=== PATIENT | female | born 1975 | race Caucasian/White ===

== ENCOUNTER 2020-11-23 14:15 | Outpatient (CLI) | payer OTHER, SELFPAY ==
--- NOTE | 2020-11-23 14:22 | MM_ITS ---
WS: [id number] BILATERAL DIGITAL SCREENING MAMMOGRAPHY WITH CAD CLINICAL INFORMATION: SCREENING HISTORY: Screening mammogram. No current complaints. COMPARISON: and March 30, 2019 TECHNIQUE: Bilateral CC and MLO views. FINDINGS: History of bilateral breast reduction Scattered fibroglandular densities bilaterally. No suspicious focal mass, asymmetry, calcifications, or architectural distortion. No evidence of malignancy. Tiny punctate calcification. MM/[place] [id number] IMPRESSION: BI-RADS: 2-Benign FOLLOW UP: 1 Year Follow-up Recommend return to annual screening mammography.
== END 2020-11-23 14:16 | disposition home or self-care (01) ==
LOC: RADSHAW 14:21
PROVIDERS: PCP Family Medicine; Visit Provider Family Medicine
DX: Z12.31 Encounter for screening mammogram for malignant neoplasm of breast (principal)
CPT/HCPCS: 77067

== ENCOUNTER → 2021-01-01 14:12 | Outpatient (BNVA) | payer OTHER, SELFPAY | PROVIDERS: PCP Family Medicine; Visit Provider Obstetrics & Gynecology | DX: R68.82 Decreased libido (principal) | CPT/HCPCS: 84403 ==

== ENCOUNTER → 2021-04-27 10:11 | Outpatient (BNVA) | payer OTHER, SELFPAY | PROVIDERS: PCP Family Medicine; Visit Provider Obstetrics & Gynecology | DX: R68.82 Decreased libido (principal) | CPT/HCPCS: 84403 ==

== ENCOUNTER 2021-07-03 09:16 | Outpatient (CLI) | payer OTHER, SELFPAY ==
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
== END 2021-07-03 09:17 | disposition home or self-care (01) ==
LOC: RAD 09:17
PROVIDERS: PCP Family Medicine; Visit Provider Family Medicine
DX: M19.011 Primary osteoarthritis, right shoulder (principal); M25.511 Pain in right shoulder
CPT/HCPCS: 73030

== ENCOUNTER → 2021-11-16 10:07 | Outpatient (BNVA) | payer OTHER, SELFPAY | PROVIDERS: PCP Family Medicine; Visit Provider Surgery | DX: K22.70 Barrett's esophagus without dysplasia (principal); K21.9 Gastro-esophageal reflux disease without esophagitis | CPT/HCPCS: 99203 ==

== ENCOUNTER 2021-11-29 11:03 | Outpatient (CLI) | payer OTHER, SELFPAY ==
--- NOTE | 2021-11-29 11:07 | MM_ITS ---
WS: [id number] BILATERAL SCREENING DIGITAL TOMOSYNTHESIS MAMMOGRAM WITH CAD HISTORY: SCREENING, weight loss and bilateral mammoplasty. COMPARISON: 11/23/2020 and 03/30/2019 Bilateral CC and MLO views with tomosynthesis and synthetic mammography submitted. Computer aided det ection analyzed. Breast composition: There are scattered areas of fibroglandular density. No suspicious masses, microc alcifications or architectural distortion. Postsurgical changes from the prior mammoplasty and volume loss within each breast. MM/[place] [id number] IMPRESSION: BI-RADS: 2-Benign FOLLOW UP: 1 Year Follow-up
== END 2021-11-29 11:04 | disposition home or self-care (01) ==
PROVIDERS: PCP Family Medicine; Visit Provider Family Medicine
DX: Z12.31 Encounter for screening mammogram for malignant neoplasm of breast (principal)
CPT/HCPCS: 77063; 77067

== ENCOUNTER 2021-12-05 10:10 | Day surgery (SDC) | payer OTHER, SELFPAY ==
[2021-12-04 12:46] VITALS: BMI 18.4
[2021-12-05 11:00] VITALS: BP 114/66; PULSE 59; RESP 18; TEMP 36.4; O2SAT 100
--- NOTE | 2021-12-05 11:35 | W.PM.OPSUD ---
Surgery/Procedure H&P Update DATE OF PROCEDURE: December 05, 2021 DATE H&P PERFORMED: 11/16/21 PLANNED PROCEDURE: Operation Date: 12/05/21 11:45 Proposed Procedures p EGD 94493,K21.9(Not Applicable) - Michele Calles DO
--- NOTE | 2021-12-05 11:40 | ANES.PREANE2 ---
Pre-Anesthetic Assessment Height/Weight: Height 1.85 m Weight 63.503 kg Temp Pulse Resp BP Pulse Ox O2 Del Method 97.6 F 59 L 18 114/66 100 12/05/21 11:00 12/05/21 11:00 12/05/21 11:00 12/05/21 11:00 12/05/21 11:00 12/05/21 11:00 Preop Diagnosis: Abd pain Operation Date: 12/05/21 11:45 Proposed Procedures p EGD 98339,K21.9(Not Applicable) - Michele Calles DO Familial anesthetic complications: none Was Beta Nilo taken within 24 hours: N/A Was Clonidine taken within 24 hours: N/A Last Intake: 23:00 Social No alcohol and No tobacco Exam alert, oriented x 3, clear to auscultation bilaterally and regular rate & rhythm Airway Submandibular: within normal limits Cervical ROM: within normal limits Mallampati: Class II Dentition: full Pulmonary None reported CV/HEM None reported None reported Hepatic None reported GI Gastroesophageal Reflux Disease Metabolic Thyroid Disease [facility] [place] None reported Neuropsych Anxiety and Depression Anesthetic Plan ASA status: 2 Anesthesia: MAC Medications/Allergies Home Medications Medication Instructions Recorded Confirmed Last Taken Type levothyroxine 88 mcg capsule 88 mcg PO DAILY 10/11/21 12/05/21 12/04/21 History fluoxetine 20 mg capsule 20 mg PO DAILY #30 caps 11/12/21 12/05/21 12/04/21 Rx esterified 1 tab PO ONCE 11/16/21 12/05/21 12/04/21 History estrogens-methyltestosterone 0.625 mg-1.25 mg tablet iron plus 1 patch topical QPM 11/16/21 12/05/21 12/04/21 History pantoprazole 40 mg tablet,delayed 40 mg PO BID 6 weeks #84 tabs 11/16/21 12/05/21 12/04/21 Rx release (Protonix) pediatric multivitamin (Gummi Bear 1 tab PO DAILY 11/16/21 12/05/21 12/04/21 History Multivitamin chewable tablet) Allergies Allergy/AdvReac Type Severity Reaction Status Date / Time No Known Allergies Allergy Verified 12/05/21 11:03 [facility] Anesthesia Medical History Anxiety 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 Surgical History H/O gastric bypass History of cholecystectomy History of esophagogastroduodenoscopy (EGD) 2019 History of partial knee replacement Hx of breast reduction, elective Hx of hysterectomy S/P ACL reconstruction Family History Father Hypertension Emphysema of lung Cancer prostate and lung cancer High cholesterol Mother Neurological disease High cholesterol Grandmother Breast cancer Paternal and maternal Denies family history of Diabetes CAD (coronary artery disease) Clotting disorder Chronic kidney disease (CKD) Bleeding disorder Thyroid disease Stroke Social History Smoking and tobacco status: former smoker Data Anesthesia Cardiac Studies: No Data to Display
[2021-12-05] MEDS: sodium chloride 0.9% 1,000 ML 30 ML IV (11:43)
[2021-12-05] MEDS: midazolam 1 mg/mL INJ 2 mL 2 MG IVP (11:51)
[2021-12-05 12:13] VITALS: BP 87/55; PULSE 57; RESP 16; TEMP 36.1; O2SAT 98
[2021-12-05 12:33] VITALS: BP 101/62; PULSE 54; RESP 16; O2SAT 100
--- NOTE | 2021-12-05 13:36 | ANE.PACU2 ---
Inpatient post-anesthesia follow up: Airway intact: Yes Vital signs: Temperature 97 F Pulse Rate 54 Respiratory Rate 16 Blood Pressure 101/62 Pulse Oximetry 100 Oxygen Delivery Me thod Room Air Oxygen Flow Rate Fraction of Inspir ed Oxygen Hydration adequate: Yes Nausea and vomiting: No Pain level: 1 Mental status: Baseline
== END 2021-12-05 12:40 | disposition home or self-care (01) ==
PROVIDERS: PCP Family Medicine; Visit Provider Surgery
PROC: 0DJ08ZZ Inspection of Upper Intestinal Tract, Via Natural or Artificial Opening Endoscopic (ICD-10-PCS; CPT 43235; principal; 2021-12-05 11:45)
DX: K21.9 Gastro-esophageal reflux disease without esophagitis (principal); K29.50 Unspecified chronic gastritis without bleeding; B96.81 Helicobacter pylori [H. pylori] as the cause of diseases classified elsewhere; F41.9 Anxiety disorder, unspecified; E03.9 Hypothyroidism, unspecified; Z87.891 Personal history of nicotine dependence
CPT/HCPCS: 43239; 88305; 88342; J2250; J2704; J7030

== ENCOUNTER 2021-12-21 07:59 | Outpatient (CLI) | payer OTHER, SELFPAY ==
--- NOTE | 2021-12-21 08:15 | MR_ITS ---
WS: [id number] MRI RIGHT SHOULDER HISTORY: Right shoulder pain COMPARISON: Radiographs 07/03/2021 TECHNIQUE: Multiplanar sequences of the shoulder joint are submitted. Mild narrowing of the AC joint. Small amount of inflammatory changes surrounding the AC joint. Mild s oft tissue and bone hypertrophy. No significant osteophyte encroachment upon the myotendinous inserti on of the supraspinatus. There is a small amount of fluid in the subacromial and subdeltoid bursa. Mi ld subacromial impingement by an osteophyte. No os acromion. I suspect tendon remains in normal posit ion. Very tiny, 5 mm insertion site tear of the supraspinatus. No retraction of the tendon. There is also additional moderate tendinopathy in the distal supraspinatus tendon. No additional tendon tear or ten dinopathy. No muscle atrophy or edema. Edema and subchondral cystic changes in the humeral head. No definite fracture is identified although there is very slight flattening of the posterior lateral humeral head. This may all be chronic and d egenerative. The glenoid is normal. Very mild narrowing of the glenohumeral joint. No labral tear. MR/MR shoulder RT wo con* [id number] IMPRESSION: 1. Very tiny insertion site tear supraspinatus tendon with moderate tendinopat hy. 2. Edema and subchondral cystic changes in the posterior lateral humeral head. Some of this edema could be related to the recent trauma. No fracture is ident ified. 3. Mild AC joint arthritis. 4. Minimal subacromial impingement by osteophytes upon the supraspinatus.
== END 2021-12-21 08:00 | disposition home or self-care (01) ==
PROVIDERS: PCP Family Medicine; Visit Provider Family Medicine
DX: M75.101 Unspecified rotator cuff tear or rupture of right shoulder, not specified as traumatic (principal); R60.0 Localized edema; M13.811 Other specified arthritis, right shoulder
CPT/HCPCS: 73221

== ENCOUNTER → 2021-12-25 10:45 | Outpatient (BNVA) | payer OTHER, SELFPAY | PROVIDERS: PCP Family Medicine; Visit Provider Surgery | DX: K29.70 Gastritis, unspecified, without bleeding (principal); B96.81 Helicobacter pylori [H. pylori] as the cause of diseases classified elsewhere | CPT/HCPCS: 99213 ==

== ENCOUNTER → 2021-12-28 09:24 | Outpatient (BNVA) | payer OTHER, SELFPAY | PROVIDERS: PCP Family Medicine; Visit Provider Orthopaedic Surgery | DX: M62.521 Muscle wasting and atrophy, not elsewhere classified, right upper arm (principal); M75.111 Incomplete rotator cuff tear or rupture of right shoulder, not specified as traumatic | CPT/HCPCS: 99204 ==

== ENCOUNTER → 2022-01-28 13:11 | Outpatient (BNVA) | payer OTHER, SELFPAY | PROVIDERS: PCP Family Medicine; Referring Provider Orthopaedic Surgery; Visit Provider Specialist | DX: M79.601 Pain in right arm (principal); R20.2 Paresthesia of skin | CPT/HCPCS: 95908; 95909 ==

== ENCOUNTER → 2022-04-03 13:06 | Outpatient (BNVA) | payer OTHER, SELFPAY | PROVIDERS: PCP Family Medicine; Visit Provider Orthopaedic Surgery | DX: M75.01 Adhesive capsulitis of right shoulder (principal) | CPT/HCPCS: 99213 ==

== ENCOUNTER 2022-04-12 10:32 | Outpatient (RCR) | payer OTHER, SELFPAY | END 2022-04-30 23:59 | disposition home or self-care (01) | LOC: SPT 10:32 | PROVIDERS: PCP Family Medicine; Visit Provider Orthopaedic Surgery | DX: M25.511 Pain in right shoulder (principal); M75.01 Adhesive capsulitis of right shoulder | CPT/HCPCS: 97110; 97161 ==

== ENCOUNTER → 2022-04-30 13:06 | Outpatient (BNVA) | payer OTHER, SELFPAY | PROVIDERS: PCP Family Medicine; Visit Provider Surgery | DX: K21.9 Gastro-esophageal reflux disease without esophagitis (principal); R10.13 Epigastric pain | CPT/HCPCS: 99213 ==

== ENCOUNTER 2022-05-01 06:00 | Outpatient (RCR) | payer OTHER, SELFPAY | END 2022-05-24 23:59 | disposition home or self-care (01) | LOC: SPT 06:00 | PROVIDERS: PCP Family Medicine; Visit Provider Orthopaedic Surgery | DX: M75.01 Adhesive capsulitis of right shoulder (principal) | CPT/HCPCS: 97110 ==

== ENCOUNTER 2022-05-01 13:09 | Outpatient (CLI) | payer OTHER, SELFPAY | END 2022-05-01 13:10 | disposition home or self-care (01) | PROVIDERS: PCP Family Medicine; Visit Provider Surgery | DX: R10.9 Unspecified abdominal pain (principal); M75.01 Adhesive capsulitis of right shoulder | CPT/HCPCS: 87338; 99212 ==

== ENCOUNTER → 2022-08-19 09:39 | Outpatient (BNVA) | payer OTHER, SELFPAY | PROVIDERS: PCP Family Medicine; Visit Provider Family Medicine | DX: R53.81 Other malaise (principal); R53.83 Other fatigue; E03.8 Other specified hypothyroidism; E06.3 Autoimmune thyroiditis | CPT/HCPCS: 84439; 84443 ==

== ENCOUNTER → 2022-10-14 16:02 | Outpatient (BNVA) | payer OTHER, SELFPAY | PROVIDERS: PCP Family Medicine; Visit Provider Family Medicine | DX: R30.0 Dysuria (principal) | CPT/HCPCS: 81000; 87086 ==

== ENCOUNTER 2022-11-01 10:04 | Outpatient (CLI) | payer OTHER, SELFPAY ==
[2022-11-01 11:09] LABS: Basophils % 0.6 %; Eosinophils # 0.1 10^3/uL (0.0-0.8); Eosinophils % 1.2 %; Hematocrit 38.8 % (36-47); Lymphocytes # 2.5 10^3/uL (0.8-4.8); Lymphocytes % 51.3 %; Mean Corpuscular HGB Conc 32.2 g/dL (30-55); Mean Corpuscular Hemoglobin 30.2 pg (27-33); Mean Corpuscular Volume 93.7 fl (85-98); Mean Platelet Volume 9.6 fL (7.4-10.4); Monocytes # 0.4 10^3/uL (0.2-0.9); Monocytes % 7.2 %; Neutrophils # 1.92 10^3/uL (1.8-7.7); Neutrophils % 39.3 %; Nucleated Red Blood Cells % 0 %; Platelet Count 232 10^3/cmm (157-399); Red Blood Count 4.14 10^6/uL (3.85-5.65); Red Cell Distribution Width 12.7 % (12.1-15.1); White Blood Count 4.89 10^3/uL (3.29-11.43)
[2022-11-01 11:23] LABS: INR 0.95 (0.8-1.2)
[2022-11-01 11:51] LABS: Calcium 8.8 mg/dL (8.5-10.5); Parathyroid Hormone 32.5 pg/mL (15-65)
[2022-11-01 11:59] LABS: 25 Hydroxy Vitamin D 37 ng/mL (30-100); Alanine Aminotransferase 11 U/L (0-33); Albumin Level 4.3 g/dL (3.5-5.2); Alkaline Phosphatase 89 U/L (35-105); Anion Gap 12.5 (5-19); Aspartate Amino Transferase 16 U/L (0-32); Blood Urea Nitrogen 10 mg/dL (6-20); Calcium 8.9 mg/dL (8.5-10.5); Carbon Dioxide 28 mmol/L (22-29); Chloride 103 mmol/L (98-107); Chol HDL Ratio 3.38 mg/dL (0.0-4.40); Cholesterol 223 mg/dL (0-200); Globulin 2.4 g/dL (1.3-4.6); Glomerular Filtration Rate 90.1 mL/min (90-130); Glucose 75 mg/dL (65-115); HDL Cholesterol 66 mg/dL (60-100); Iron 93 ug/dL (37-145); LDL Cholesterol Calculated 138 mg/dL (50-129); LDL HDL Ratio 2.09 RATIO (0.00-3.22); Magnesium 2.2 mg/dL (1.7-2.3); Osmolality Calculated 286 mOsm/kg (285-295); Percent Saturation 27.1 % (20-50); Potassium 4.5 mmol/L (3.5-5.1); Prealbumin 25.7 mg/dL (20-40); Sodium 139 mmol/L (136-145); Thyroid Stimulating Hormone 1.33 uIU/mL (0.27-4.20); Total Bilirubin 0.3 mg/dL (0.15-1.2); Total Iron Binding Capacity 343 mcg/dl; Total Protein 6.7 g/dL (6.6-8.7); Triglycerides 97 mg/dL (0-150); Unsaturated Iron Binding 250 ug/dL (112-347); Vitamin B12 299 pg/mL (232-1245)
[2022-11-05 12:53] LABS: Vitamin B6 Plasma 14.5 ng/mL (2.1-21.7)
[2022-11-06 15:04] LABS: Zinc Level, Serum or Plasma 72 mcg/dL (60-130)
[2022-11-07 12:40] LABS: Vitamin B1 (Thiamine),Blood 142 nmol/L (78-185)
[2022-11-07 14:45] LABS: Vitamin K 209 pg/mL (130-1500)
== END 2022-11-01 10:05 | disposition home or self-care (01) ==
LOC: LAB 10:07
PROVIDERS: PCP Family Medicine; Visit Provider Family Medicine
DX: E55.9 Vitamin D deficiency, unspecified (principal); R10.13 Epigastric pain; R53.81 Other malaise; R53.83 Other fatigue; Z98.84 Bariatric surgery status
CPT/HCPCS: 36415; 80053; 80061; 82306; 82310; 82607; 83540; 83550; 83735; 83970; 84134; 84207; 84425; 84439; 84443; 84597; 84630; 85025; 85610

== ENCOUNTER 2022-12-13 11:23 | Outpatient (CLI) | payer OTHER, SELFPAY ==
--- NOTE | 2022-12-13 11:26 | MM_ITS ---
WS: [id number] Bilateral screening 3D tomosynthesis digital mammogram, 12/13/2022 Clinical Data: SCREENING Comparison: 11/28/2021, 11/23/2020, 03/30/2019, 12/29/2017, 06/11/2016, 06/06/2015. Findings: The breast parenchymal pattern shows fibroglandular tissue. No spiculated masses or clustered calcifi cations are seen. There are no secondary signs of carcinoma. Impression: 1. Negative bilateral mammogram unchanged. 2. Recommend annual screening mammograms. MM/[place] [id number] BIRADS: 1-Negative FOLLOW UP: 1 Year Follow-up The CAD [employer] was used.
== END 2022-12-13 11:24 | disposition home or self-care (01) ==
LOC: RAD 11:24
PROVIDERS: PCP Family Medicine; Visit Provider Family Medicine
DX: Z12.31 Encounter for screening mammogram for malignant neoplasm of breast (principal)
CPT/HCPCS: 77063; 77067

== ENCOUNTER → 2023-07-29 17:07 | Outpatient (BNVA) | payer OTHER, SELFPAY | PROVIDERS: PCP Family Medicine; Visit Provider Family Medicine | DX: N39.0 Urinary tract infection, site not specified (principal); R30.0 Dysuria; N12 Tubulo-interstitial nephritis, not specified as acute or chronic | CPT/HCPCS: 81000; 87086 ==

== ENCOUNTER → 2023-09-17 13:31 | Outpatient (BNVA) | payer OTHER, SELFPAY | PROVIDERS: PCP Family Medicine; Visit Provider Physician Assistant | DX: M65.322 Trigger finger, left index finger | CPT/HCPCS: 20600; 73130; 99203; J3301; J3490 ==

== ENCOUNTER → 2023-10-27 10:55 | Outpatient (BNVA) | payer OTHER, SELFPAY | PROVIDERS: PCP Family Medicine; Visit Provider Internal Medicine | DX: E03.8 Other specified hypothyroidism (principal); E06.3 Autoimmune thyroiditis; Z98.84 Bariatric surgery status; Z90.49 Acquired absence of other specified parts of digestive tract; R63.5 Abnormal weight gain; Z68.23 Body mass index [BMI] 23.0-23.9, adult; Z79.890 Hormone replacement therapy | CPT/HCPCS: 99214 ==

== ENCOUNTER 2023-12-16 11:42 | Outpatient (CLI) | payer OTHER, SELFPAY ==
--- NOTE | 2023-12-16 11:44 | MM_ITS ---
WS: [id number] BILATERAL 3D TOMOSYNTHESIS DIGITAL SCREENING MAMMOGRAPHY WITH CAD CLINICAL INFORMATION: SCREENING HISTORY: Screening mammogram. No current complaints. COMPARISON: 2022 TECHNIQUE: Bilateral CC and MLO views. FINDINGS: Scattered fibroglandular densities bilaterally. No suspicious focal mass, asymmetry, calcifications, or architectural distortion. No evidence of malignancy. Incidental punctate calcifications RIGHT alicia st. MM/MM scr BI tomosynthesis [id number] IMPRESSION: DENSITY: There are scattered areas of fibroglandular density. BI-RADS: 2 - Benign. FOLLOW UP: 1 Year Follow-up Recommend return to annual screening mammography.
== END 2023-12-16 11:43 | disposition home or self-care (01) ==
LOC: RAD 11:43
PROVIDERS: PCP Family Medicine; Visit Provider Family Medicine
DX: Z12.31 Encounter for screening mammogram for malignant neoplasm of breast (principal); R92.323 Mammographic fibroglandular density, bilateral breasts; R92.1 Mammographic calcification found on diagnostic imaging of breast
CPT/HCPCS: 77063; 77067

== ENCOUNTER 2024-03-13 17:27 | Emergency (ER) | payer OTHER, SELFPAY ==
[2024-03-13 17:28] VITALS: BP 116/70; BMI 23.1
--- NOTE | 2024-03-13 18:14 | XRR_ITS ---
PROCEDURE INFORMATION: Exam: XR Abdomen Exam date and time: 03/13/2024 6:33 PM Age: 48 years old Clinical indication: Abdominal pain; Localized; Prior surgery; Surgery date: 6+ months; Surgery type: Gastric bypass. Gb. Hysterectomy. Patient HX: C/O left sided abd pain; Additional info: Left lower quadrant abdominal pain TECHNIQUE: Imaging protocol: Radiologic exam of the abdomen. Views: Frontal supine view of the abdomen. 1 View. COMPARISON: No relevant prior studies available. FINDINGS: Gastrointestinal tract: Normal. No bowel dilation. Bones/joints: Unremarkable. XR/XR KUB [id number] IMPRESSION: No acute findings.
[2024-03-13 18:20] LABS: Basophils % 0.4 %; Eosinophils # 0.1 10^3/uL (0.0-0.8); Hematocrit 35.7 % (36-47); Lymphocytes # 2.5 10^3/uL (0.8-4.8); Lymphocytes % 52.4 %; Mean Corpuscular HGB Conc 32.5 g/dL (30-55); Mean Corpuscular Volume 92.2 fl (85-98); Monocytes # 0.4 10^3/uL (0.2-0.9); Neutrophils # 1.82 10^3/uL (1.8-7.7); Neutrophils % 38.2 %; Nucleated Red Blood Cells % 0 %; Platelet Count 235 10^3/cmm (157-399); Red Blood Count 3.87 10^6/uL (3.85-5.65); Red Cell Distribution Width 12.7 % (12.1-15.1); White Blood Count 4.77 10^3/uL (3.29-11.43)
[2024-03-13 18:28] VITALS: BP 135/87; PULSE 52; RESP 16; O2SAT 99
--- NOTE | 2024-03-13 18:29 | ED_ITS ---
HPI - Abdominal Pain 2 General: Chief Complaint: Abdominal Pain Stated Complaint: left side rib area pain Time Seen by Provider: 03/13/24 17:51 History of Present Illness: Lisa Martinez is a 48-year-old female that presents to the emergency department with complaints of left lower quadrant abdominal pain that radiates up into the left upper quadrant. Onset of symptoms. Patient states that she believes it was gas/flatulence but she took a Gas-X and did not get better. Patient has a history of gastric bypass approximately 5 years ago. This was done in [facility]. Patient denies any complications. Patient has had issues with flatulence/gas pain but usually her medicines work Patient denies nausea vomiting or diarrhea. Denies fevers. Denies chest pain or shortness of breath. Last bowel movement just prior to arrival here. She denies black stools or bloody stools. She states consistency was normal for bowel movement. Related Data Home Medications Medication Instructions Recorded Confirmed bupropion HCl 150 mg 24 hr tablet, 150 mg PO 10/27/23 10/27/23 extended release citalopram 10 mg tablet 10 mg PO 10/27/23 10/27/23 Previous Rx's Medication Instructions Recorded esterified 1 tab PO DAILY #90 tabs 01/02/23 estrogens-methyltestosterone 0.625 mg-1.25 mg tablet pantoprazole 40 mg tablet,delayed 40 mg PO DAILY #90 tabs 05/26/23 release (Protonix) sulfamethoxazole 800 1 tab PO BID 5 days #10 tabs 03/13/24 mg-trimethoprim 160 mg tablet (Bactrim DS) Allergies Allergy/AdvReac Type Severity Reaction Status Date / Time No Known Allergies Allergy Verified 10/27/23 11:12 Review of Systems 2 General: Reports: 10 or more systems reviewed and unremarkable except in HPI and below PFSH ED 2 PFSH: Medical History Anxiety 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 Surgical History History of esophagogastroduodenoscopy (EGD) 2019 History of cholecystectomy History of partial knee replacement Hx of breast reduction, elective Hx of hysterectomy S/P ACL reconstruction H/O gastric bypass Family History Father Hypertension Emphysema of lung Cancer prostate and lung cancer High cholesterol Alzheimer disease Mother Neurological disorder High cholesterol Grandmother Breast cancer Paternal and maternal Denies family history of Diabetes CAD (coronary artery disease) Clotting disorder Chronic kidney disease (CKD) Bleeding disorder Thyroid disease Stroke Social History Smoking and tobacco/nicotine status: never used tobacco/nicotine Physical Exam 2 Const: COMMON NORMALS: no acute distress, patient oriented x3 and alert G ENERAL APPEARANCE: cooperative ORIENTATION/CONSCIOUSNESS: Yes awake, Yes oriented to person, Yes oriented to place and Yes oriented to time HENMT: COMMON NORMALS: normocephalic and atraumatic HEAD & SCALP: n ormocephalic and atraumatic FACE & SINUS: normal facial exam MOUTH: Normal oral and palatal mucosa present THROAT: posterior oropharynx normal Eye: COMMON NORMALS: Equal, round and reactive pupils present, EOMs intact bilaterally, conjunctivae normal and no scleral icterus GENERAL EYE: a ppearance normal, both eyes and all related structures ALIGNMENT: Yes alignment normal PERIORBITAL: periorbital findings normal CONJUNCTIVA: Yes conjunctivae normal PUPIL: Yes Equal, round and reactive pupils present Neck/C-Spine: COMMON NORMALS: full ROM GENERAL: Yes normal visual inspection Lymph: LYMPHATIC: no lymphadenopathy noted Chest: COMMONS NORMALS: normal inspection of the chest Breast/axilla inspection: Yes no chest deformity, asymmetry, normal contours, no nodules, masses, tenderness Resp: COMMON NORMALS: normal respiratory effort, No retractions, No use of accessory muscles and clear to auscultation bilaterally EFFORT & INSPECTION: Yes able to speak in complete sentences and Yes symmetric chest movement A USCULTATION: clear to auscultation bilaterally Cardio: COMMON NORMALS: regular rate, regular rhythm and Peripheral pulses 2+ throughout RATE: regular rate RHYTHM: regular rhythm PERIPHERAL PULSES: Peripheral pulses 2+ throughout GI: COMMON NORMALS: Normal to inspection, nondistended, normoactive bowel sounds present, Soft to palpation, non-tender and No hepatosplenomegaly present INSPECTION: Yes normal to inspection AUSCULTATION: Yes normoactive bowel sounds PALPATION: Yes Soft to palpation and Yes No hepatosplenomegaly present RECTAL EXAM: deferred Extremity: COMMON NORMALS: normal to inspection GENERAL: Yes normal exam except as noted Neuro: COMMON NORMALS: patient oriented x3 SENSORIUM/ORIENTATION: Yes alert, Yes oriented to person, Yes oriented to place and Yes oriented to time CRANIAL NERVES: Yes CN normal except as noted Psych: COMMON NORMALS: mental status grossly normal, Normal thought process present, cooperative, activity/motor behavior normal, denies homicidal ideation and denies suicidal ideation THOUGHT PROCESS: Normal thought process present Skin: COMMON NORMALS: no rashes or lesions noted, no wounds and turgor normal GENERAL SKIN EXAM: no rashes or lesions noted and turgor normal Course 2 Vital Signs: Vital signs: Vital Signs Pulse Rate 52 L 03/13/24 18:28 Respiratory Rate 16 03/13/24 18:28 Blood Pressure 135/87 03/13/24 18:28 Pulse Oximetry 99 03/13/24 18: Oxygen Delivery Me thod Room Air 03/13/24 18:28 MDM - Abdominal Pain Medical Decision Making Patient was evaluated in the emergency department today for complaints of left lower quadrant abdominal pain. Differential diagnoses includes diverticulosis, diverticulitis, Crohn's, colitis, gastroenteritis, gas or constipation. Patient underwent a urinalysis, CBC CMP and KUB. CBC reveals no leukocytosis, anemias, thrombocytopenia. CMP reveals no electrolyte abnormalities, dysfunction with her liver or kidneys. Patient's KUB reveals normal gas pattern without obstructive findings. Urinalysis reveals 2+ bacteria, white blood cells 11-20 and leukoesterase 1+. Patient was given Bactrim here in the emergency department and is going to be discharged on antibiotics for UTI. Reviewed findings with patient and her . All questions and Lab Data 03/13/24 18:02 03/13/24 18:02 Labs/Radiology: Laboratory Results WBC 4.77 10^3/uL (3.29-11.43) 03/13/24 18: RBC 3.87 10^6/uL (3.85-5.65) 03/13/24 18: Hgb 11.60 g/dL (11.27-16.99) 03/13/24 18: Hct 35.7 % (36-47) L 03/13/24 18: MCV 92.2 fl (85-98) 03/13/24 18: MCH 30.0 pg (27-33) 03/13/24 18: MCHC 32.5 g/dL (30-55) 03/13/24 18:02 RDW 12.7 % (12.1-15.1) 03/13/24 18:02 Plt Count 235 10^3/cmm (157-399) 03/13/24 18:02 MPV 10.0 fL (7.4-10.4) 03/13/24 18:02 Neut % (Auto) 38.2 % 03/13/24 18:02 Lymph % (Auto) 52.4 % 03/13/24 18:02 [place] % (Auto) 8.0 % 03/13/24 18:02 Eos % (Auto) 1.0 % 03/13/24 18:02 Baso % (Auto) 0.4 % 03/13/24 18:02 Neut # (Auto) 1.82 10^3/uL (1.8-7.7) 03/13/24 18:02 Lymph # (Auto) 2.5 10^3/uL (0.8-4.8) 03/13/24 18:02 [place] # (Auto) 0.4 10^3/uL (0.2-0.9) 03/13/24 18:02 Eos # (Auto) 0.1 10^3/uL (0.0-0.8) 03/13/24 18:02 Baso # (Auto) 0.0 10^3/uL (0.0-0.1) 03/13/24 18:02 Nucleated RBC % (auto) 0 % 03/13/24 18: Nucleated RBCs # 0.0 /100WBC 03/13/24 18:02 Sodium 139 mmol/L (136-145) 03/13/24 18:02 Potassium 4.1 mmol/L (3.5-5.1) 03/13/24 18:02 Chloride 105 mmol/L (98-107) 03/13/24 18:02 Carbon Dioxide 25 mmol/L (22-29) 03/13/24 18:02 Anion Gap 13.1 (5-19) 03/13/24 18:02 BUN 8 mg/dL (6-20) 03/13/24 18:02 Creatinine 0.7 mg/dL (0.5-0.9) 03/13/24 18:02 GFR Calculation 89.7 mL/min (90-130) L 03/13/24 18:02 Glucose 78 mg/dL (65-115) 03/13/24 18:02 Calculated Osmolality 285 mOsm/kg (285-295) 03/13/24 18:02 Calcium 8.6 mg/dL (8.5-10.5) 03/13/24 18:02 Total Bilirubin 0.2 mg/dL (0.15-1.2) 03/13/24 18: AST 12 U/L (0-32) 03/13/24 18:02 ALT 6 U/L (0-33) 03/13/24 18:02 Alkaline Phosphatase 68 U/L (35-105) 03/13/24 18: Total Protein 6.6 g/dL (6.6-8.7) 03/13/24 18: Albumin 4.1 g/dL (3.5-5.2) 03/13/24 18: Globulin 2.5 g/dL (1.3-4.6) 03/13/24 18: Urine Color Yellow (Yellow) 03/13/24 18:28 Urine Appearance Clear (CLEAR) 03/13/24 18: Urine pH 7.5 (5-7) 03/13/24 18: Ur Specific [place] 1.021 (1.005-1.030) 03/13/24 18: Urine Protein Negative (Negative) 03/13/24 18:28 Urine Glucose (UA) Negative (Normal) 03/13/24 18:28 Urine Ketones Negative (Negative) 03/13/24 18:28 Urine Blood Negative (Negative) 03/13/24 18: Urine Nitrate Negative (Negative) 03/13/24 18:28 Urine Bilirubin Negative (Negative) 03/13/24 18: Urine Urobilinogen 1.0 mg/dL (Negative) 03/13/24 18:28 Ur Leukocyte Esterase 1+ (Negative) A 03/13/24 18:28 Urine RBC 0-2 /hpf (0-2) 03/13/24 18:28 Urine WBC 11-20 /hpf (0-5) H 03/13/24 18:28 Ur Squamous Epith Cells 11-20 /hpf (0-5) 03/13/24 18: Amorphous Sediment Not Reportable 03/13/24 18:28 Urine Bacteria 2+ /hpf (NONE) H 03/13/24 18:28 Hyaline Casts 0.40 /lpf 03/13/24 18:28 XR interpretation done by ED provider, pending radiology final review Discharge Plan Discharge Patient Disposition: Home Clinical Impression: Urinary tract infection Condition: Stable Prescriptions: New sulfamethoxazole-trimethoprim [Bactrim DS] 800-160 mg tablet 1 tab PO BID 5 Days Qty: 10 0RF No Action citalopram 10 mg tablet 10 mg PO bupropion HCl 150 mg tablet extended release 24 hr 150 mg PO estrogens-methyltestosterone 0.625-1.25 mg tablet 1 tab PO DAILY Qty: 90 1RF pantoprazole [Protonix] 40 mg tablet,delayed release (DR/EC) 40 mg PO DAILY Qty: 90 3RF Discharge Orders: Discharge ED (Routine); Ordered 03/13/24 Ordered By: Vincenzo Byrnes Referrals: Emanuel Vences MD [Primary Care Provider] - Discharge Diet: Advance as tolerated Discharge Activity: Resume usual activity Patient Instructions: Pain Management, Urinary Tract Infection - Women Activity Restrictions/Additional Instructions: Please take antibiotics as prescribed Please return to the emergency department for new, concerning, worsening symptoms Coding Level of Care Code ED [employer] for Bashir Pulliam
[2024-03-13 18:34] LABS: Bilirubin Urine Negative (Negative); Blood Urine Negative (Negative); Glucose Urine UA Negative (Normal); Ketones Urine Negative (Negative); Leukocyte Esterase Urine 1+ (Negative); Nitrate Urine Negative (Negative); Protein Urine Negative (Negative); Specific Gravity, Urine 1.021 (1.005-1.030); Urine Appearance Clear (CLEAR); Urine Color Yellow (Yellow); pH Urine 7.5 (5-7)
[2024-03-13 18:37] LABS: Alanine Aminotransferase 6 U/L (0-33); Albumin Level 4.1 g/dL (3.5-5.2); Alkaline Phosphatase 68 U/L (35-105); Anion Gap 13.1 (5-19); Aspartate Amino Transferase 12 U/L (0-32); Blood Urea Nitrogen 8 mg/dL (6-20); Calcium 8.6 mg/dL (8.5-10.5); Carbon Dioxide 25 mmol/L (22-29); Chloride 105 mmol/L (98-107); Creatinine Clr Calc Pharmacy 120.7577; Globulin 2.5 g/dL (1.3-4.6); Glomerular Filtration Rate 89.7 mL/min (90-130); Glucose 78 mg/dL (65-115); Osmolality Calculated 285 mOsm/kg (285-295); Potassium 4.1 mmol/L (3.5-5.1); Sodium 139 mmol/L (136-145); Total Bilirubin 0.2 mg/dL (0.15-1.2); Total Protein 6.6 g/dL (6.6-8.7)
[2024-03-13 18:39] LABS: Add Urine Microscopic? YES; Bacteria Urine 2+ /hpf; RBC Urine 0-2 /hpf (0-2)
[2024-03-13] MEDS: sulfamethoxazole-trimeth DS 160-800 mg Tablet 1 TAB PO (19:55)
[2024-03-13 19:59] VITALS: BP 115/71; PULSE 53; RESP 16; O2SAT 100
== END 2024-03-13 20:00 | disposition home or self-care (01) ==
PROVIDERS: Emergency Provider Nurse Practitioner; PCP Family Medicine
DX: N39.0 Urinary tract infection, site not specified (principal)
CPT/HCPCS: 74018; 80053; 81001; 85025; 99284

== ENCOUNTER 2024-05-24 15:31 | Outpatient (CLI) | payer OTHER, SELFPAY ==
--- NOTE | 2024-05-24 15:45 | XRR_ITS ---
PROCEDURE INFORMATION: Exam: XR Cervical Spine Exam date and time: 05/24/2024 3:53 PM Age: 49 years old Clinical indication: Radicular pain (radiculopathy); Cervical region; Posterior neck pain that radiates down RT shoulder, RT arm and down the right side and stops under the RT rib cage x 1 month. Pain is getting worse. 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 Views: 2 or 3 views. COMPARISON: MR shoulder RT wo con* [id number] 12/21/2021 8:18 AM FINDINGS: Bones/joints: No acute fracture. Normal alignment. Moderate degenerative disc disease at C5-C6. Soft tissues: Unremarkable. XR/XR cervical spine 3V* [id number] IMPRESSION: No acute findings.
--- NOTE | 2024-05-24 15:45 | XRR_ITS ---
PROCEDURE INFORMATION: Exam: XR Right Shoulder Exam date and time: 05/24/2024 3:53 PM Age: 49 years old Clinical indication: Posterior neck pain that radiates down RT shoulder, RT arm and down the right side and stops under the RT rib cage x 1 month. Pain is getting worse. 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 Views: 2 or more views. COMPARISON: MR shoulder RT wo con* [id number] 12/21/2021 8:18 AM FINDINGS: Bones/joints: Normal. Soft tissues: Normal. XR/XR shoulder RT min 2V* [id number] IMPRESSION: No acute findings.
== END 2024-05-24 15:32 | disposition home or self-care (01) ==
PROVIDERS: PCP Family Medicine; Visit Provider Family Medicine
DX: M54.12 Radiculopathy, cervical region (principal); M25.511 Pain in right shoulder; M50.322 Other cervical disc degeneration at C5-C6 level
CPT/HCPCS: 72040; 73030

== ENCOUNTER → 2024-06-29 09:46 | Outpatient (BNVA) | payer OTHER, SELFPAY | PROVIDERS: PCP Family Medicine; Visit Provider Internal Medicine | DX: E03.8 Other specified hypothyroidism (principal); E06.3 Autoimmune thyroiditis | CPT/HCPCS: 36415; 84439; 84443; 99214 ==

== ENCOUNTER 2024-11-17 11:19 | Outpatient (CLI) | payer OTHER, SELFPAY ==
--- NOTE | 2024-11-17 11:31 | XR_ITS ---
WS: [id number] XR lumbar spine 6V w f/e [id number] REASON FOR EXAM: Lumbar radiculopathy FINDINGS: Mild levoscoliosis of the lumbar spine. Mild straightening of the normal lordosis. No significant compression deformity or focal lesion of the lumbar vertebrae. There is moderate narrowing of the L4-L5 and L5-S1 disc space with moderate endplate sclerosis and osteophytosis. No spondylolysis identified. No significant spondylolisthesis. XR/XR lumbar spine 6V w f/e [id number] IMPRESSION: Lumbar degenerative spondylosis as above.
== END 2024-11-17 11:20 | disposition home or self-care (01) ==
PROVIDERS: PCP Family Medicine; Visit Provider Family Medicine
DX: M54.16 Radiculopathy, lumbar region (principal); M47.816 Spondylosis without myelopathy or radiculopathy, lumbar region
CPT/HCPCS: 72114

== ENCOUNTER 2024-11-25 10:01 | Outpatient (CLI) | payer OTHER, SELFPAY | END 2024-11-25 10:02 | disposition home or self-care (01) | PROVIDERS: PCP Family Medicine; Visit Provider Family Medicine | DX: Z00.00 Encounter for general adult medical examination without abnormal findings (principal); R53.81 Other malaise; R53.83 Other fatigue; Z98.84 Bariatric surgery status; E53.8 Deficiency of other specified B group vitamins; Z13.6 Encounter for screening for cardiovascular disorders; E03.9 Hypothyroidism, unspecified; Z51.81 Encounter for therapeutic drug level monitoring | CPT/HCPCS: 80053; 80061; 82306; 82525; 82607; 83550; 84425; 84439; 84443; 84597; 84630; 85025 ==

== ENCOUNTER 2024-12-04 18:44 | Emergency (ER) | payer OTHER, SELFPAY ==
[2024-12-04 18:46] VITALS: BP 105/46; PULSE 67; RESP 18; O2SAT 100
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
--- OUTSIDE RECORDS SUMMARY | 2024-12-04 18:51 | XMS_ITS | Patient Health Record ---
Author Organization [facility] Address [address] [place] [address] [place] [id number] Care Team Providers Care Clinical Abstractor Name Role Phone BENI BARKLEY, JEREMY Unavailable [phone] DMITRIY ROSADO MD Unavailable Unavailable Allergies No Known Allergies Reason For Referral No Information Medications Medication SIG (Take, Route, Frequency, Duration) Notes Start Date End Date Status Synthroid 112 MCG 1 tablet in the morning on an empty stomach Orally Once a day; Duration: 30 day(s) BRAND ONLY! 03/27/2020 Active Premarin 0.625 MG 1 tablet Orally Once a day Active Escitalopram Oxalate 20 MG 1 tablet Orally Once a day Active Lyrica 100 MG 1 capsule Orally Onc e a day Active Pantoprazole Sodium 40 MG 1 tablet Orally Once a day Active hydrOXYzine HCl 10 MG 1 tablet as needed Orally every 8 hrs Active Social History Tobacco Use: Social History Observation Description Date Details (start date - stop date) Never Smoker NA - NA Tobacco Use/Smoking Question Answer Notes Are you a nonsmoker Problems Problem Type SNOMED Code ICD Code Onset Dates Problem Status W/U Status Risk Notes Problem Hypothyroidism (45700001) Hypothyroidism, unspecified (E03.9) Active confirmed Problem Autoimmune thyroiditis (58754589) Autoimmune thyroiditis (E06.3) Active confirmed Problem Acquired hypothyroidism (337002771) Acquired hypothyroidism (E03.9) Active confirmed Plan Of Treatment No Information Insurance Providers Payer Name Payer Address Payer Phone Subscriber Number Group Number Insured Name Patient Relationship to Insured Coverage Start Date Coverage End Date Nirali Bowden [id number] [place], [place] [id number] MAE GIORDANO Self - patient is the insured 9 2 Medical (General) History Medical History History ICD Code Osteoarthritis No warfarin, no aspirin, no Plavix. No o ther blood thinners at present.
[2024-12-04 19:49] VITALS: BP 116/72; O2SAT 100
[2024-12-04 20:03] VITALS: O2SAT 100
--- NOTE | 2024-12-04 20:34 | CTR_ITS ---
PROCEDURE INFORMATION: Exam: CT Abdomen And Pelvis With Contrast Exam date and time: 12/04/2024 8:44 PM Age: 49 years old Clinical indication: Abdominal pain; Localized; Left lower quadrant (llq); Prior surgery; Surgery date: 6+ months; Surgery type: Gastric bypass. Gb. Hysterectomy. C/O llq pain x 2 days TECHNIQUE: Imaging protocol: Computed tomography of the abdomen and pelvis with contrast. Radiation optimization: All CT scans at this facility use at least one of these dose optimization techniques: automated exposure control; mA and/or kV adjustment per patient size (includes targeted exams where dose is matched to clinical indication); or iterative reconstruction. Contrast material: OMNI 350; Contrast volume: 100 ml; Contrast route: INTRAVENOUS (IV); COMPARISON: CR XR KUB [id number] 03/13/2024 6:33 PM RADIATION DOSE METRICS: Total DLP (mGy-cm): 428.15 FINDINGS: Lungs: Lung bases are clear as visualized. Heart: Base of heart is unremarkable as visualized. Liver: Normal. No mass. Gallbladder and biliary ducts: Status post cholecystectomy. Pancreas: Normal. No ductal dilation. Spleen: Normal. No splenomegaly. Adrenal glands: Normal. No mass. Kidneys and ureters: Normal. No hydronephrosis. Stomach and bowel: Status post gastric bypass. Prominent stool burden. Appendix: No evidence of appendicitis. Intraperitoneal space: Unremarkable. No free air. No significant fluid collection. Vasculature: Moderate atherosclerotic disease within the abdomen. Questionable calcified splenic artery aneurysm seen at the hilum measuring 11 x 13 mm (series 3, image 15). Lymph nodes: Unremarkable. No enlarged lymph nodes. Urinary bladder: Unremarkable as visualized. Reproductive: Hysterectomy. Bones/joints: Degenerative change of the spine. Soft tissues: Right small indirect fat containing hernia. CT/CT abdomen pelvis w con* [id number] IMPRESSION: 1. No acute intra-abdominal findings. 2. Questionable calcified splenic artery aneurysm. Recommend CTA for further assessment.
--- NOTE | 2024-12-04 20:35 | ED_ITS ---
HPI - Abdominal Pain 2 General: Chief Complaint: Abdominal Pain Stated Complaint: abd pain left radiating Time Seen by Provider: 12/04/24 19:15 History of Present Illness: Patient is a 49-year-old female with history of gastric bypass 6 years ago reports to the emergency room due to left lower quadrant abdominal pain that started the night before last and has continued. This has waxed and waned. Patient states pain. No change in stools. She is passing gas. No nausea or vomiting. Just this deep left lower quadrant pain. This has never occurred before. No issues with her gastric bypass. She has attempted Mylanta, Zofran, Pepcid, nothing seems to relieve it. No history of diverticulitis. No recent colonoscopy. Associated Symptoms: Denies change in stool character, chills, diarrhea, fever(s), nausea and vomiting Related Data Previous Rx's ?Medication ?Instructions ?Recorded cyclobenzaprine 10 mg tablet 10 mg PO TID PRN muscle s pasm #30 11/17/24 tabs metronidazole 0.75 % topical gel 1 applic topical FLOR Y #45 grams 11/25/24 methocarbamol 750 mg tablet 750 mg PO Q8H PRN muscle s pasm #30 12/04/24 tabs Allergies Allergy/AdvReac Type Severity Reaction Status Date / Time No Known Allergies Allergy Verified 06/28/24 12:24 Review of Systems 2 General: Reports: 10 or more systems reviewed and unremarkable except in HPI and below Const: Denies: fever(s) or chills Eyes: Denies: change in vision or blurry vision ENMT: Denies: throat pain or post nasal drip Card: Denies: chest pain or palpitations Resp: Denies: dyspnea or non-productive cough GI: Reports: abdominal pain; Denies: nausea, vomiting, diarrhea, pain on defecation or change in stool character : Denies: flank pain or difficulty voiding Musc: Denies: neck pain, back pain or extremity pain Skin/Breast: Denies: rash or pruritus Neuro: Denies: headache(s) or numbness in extremities Psych: Denies: anxiety or depression PFS ED 2 PFSH: Medical History (Updated 12/04/24 @ 23:59 by SAURABH Metcalf) Anxiety 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 Surgical History History of esophagogastroduodenoscopy (EGD) 2019 History of cholecystectomy History of partial knee replacement Hx of breast reduction, elective Hx of hysterectomy S/P ACL reconstruction H/O gastric bypass Family History Father Hypertension Emphysema of lung Cancer prostate and lung cancer High cholesterol Alzheimer disease Mother Neurological disorder High cholesterol Grandmother Breast cancer Paternal and maternal Denies family history of Diabetes CAD (coronary artery disease) Clotting disorder Chronic kidney disease (CKD) Bleeding disorder Thyroid disease Stroke Social History (Updated 11/25/24 @ 08:16 by Emanuel Vences MD) Smoking and tobacco/nicotine status: never used tobacco/nicotine Alcohol intake: never Substance/Drug Use: current Other substance/drug use details: Gummy sleeps once a week Physical Exam 2 Const: COMMON NORMALS: no acute distress, average body habitus and patient oriented x3 HENMT: COMMON NORMALS: normocephalic and atraumatic HEAD & SCALP: n ormocephalic and atraumatic Neck/C-Spine: COMMON NORMALS: full ROM and no lymphadenopathy Resp: COMMON NORMALS: normal respiratory effort, No retractions and clear to auscultation bilaterally AUSCULTATION: clear to auscultation bilaterally Cardio: COMMON NORMALS: regular rate and regular rhythm RATE: regular rate RHYTHM: regular rhythm GI: COMMON NORMALS: Normal to inspection, nondistended, normoactive bowel sounds present and Soft to palpation PALPATION: Yes Soft to palpation : COMMON NORMALS: Yes no CVA tenderness BLADDER/KIDNEY EXAM: Yes no CVA tenderness Back/Pelvis: COMMON NORMALS: no CVA tenderness Extremity: COMMON NORMALS: normal to inspection, full ROM and capillary refill normal Neuro: COMMON NORMALS: patient oriented x3 and CN's II-XII intact bilaterally Psych: COMMON NORMALS: mental status grossly normal and Normal thought process present THOUGHT PROCESS: Normal thought process present Course 2 Reevaluation(s): Reevaluation #1: Improved after fentanyl Vital Signs: Vital signs: Vital Signs Pulse Rate 67 12/04/24 18:46 Respiratory Rate 17 12/04/24 20:59 Blood Pressure 120/70 12/04/24 21:35 Pulse Oximetry 100 12/04/24 21:35 Oxygen Delivery Me thod Room Air 12/04/24 21:35 MDM - Abdominal Pain Medical Decision Making Patient is 49-year-old female status post gastric bypass in [facility] 6 years ago that presents with left lower quadrant pain. Her CT is significant for calcified splenic artery. Discussed the case with Dr. Gil Coppola with the emergency and states that patient can follow-up outpatient. Lab Data 12/04/24 19:58 12/04/24 20:56 Labs/Radiology: Radiology Impressions Abdomen/Pelvis CT 12/04/24 20:34 IMPRESSION: 1. No acute intra-abdominal findings. 2. Questionable calcified splenic artery aneurysm. Recommend CTA for further assessment. Abdomen/Pelvis CTA 12/04/24 22:03 IMPRESSION: Confirmed 8 x 10 x 12 mm peripherally calcified splenic artery aneurysm. Recommend vascular consultation for further assessment and management. Laboratory Results WBC 5.75 10^3/uL (3.29-11.43) 12/04/24 19:58 RBC 4.30 10^6/uL (3.85-5.65) 12/04/24 19:58 Hgb 12.80 g/dL (11.27-16.99) 12/04/24 19:58 Hct 39.1 % (36-47) 12/04/24 19:58 MCV 90.9 fl (85-98) 12/04/24 19:58 MCH 29.8 pg (27-33) 12/04/24 19:58 MCHC 32.7 g/dL (30-55) 12/04/24 19:58 RDW 13.2 % (12.1-15.1) 12/04/24 19:58 Plt Count 242 10^3/cmm (157-399) 12/04/24 19:58 MPV 9.9 fL (7.4-10.4) 12/04/24 19:58 Neut % (Auto) 46.2 % 12/04/24 19:58 Lymph % (Auto) 45.7 % 12/04/24 19:58 [place] % (Auto) 6.4 % 12/04/24 19:58 Eos % (Auto) 1.0 % 12/04/24 19:58 Baso % (Auto) 0.5 % 12/04/24 19:58 Neut # (Auto) 2.65 10^3/uL (1.8-7.7) 12/04/24 19:58 Lymph # (Auto) 2.6 10^3/uL (0.8-4.8) 12/04/24 19:58 [place] # (Auto) 0.4 10^3/uL (0.2-0.9) 12/04/24 19:58 Eos # (Auto) 0.1 10^3/uL (0.0-0.8) 12/04/24 19:58 Baso # (Auto) 0.0 10^3/uL (0.0-0.1) 12/04/24 19:58 Nucleated RBC % (auto) 0 % 12/04/24 19:58 Nucleated RBCs # 0.0 /100WBC 12/04/24 19:58 Sodium 136 mmol/L (136-145) 12/04/24 20:56 Potassium 3.7 mmol/L (3.5-5.1) 12/04/24 20:56 Chloride 102 mmol/L (98-107) 12/04/24 20:56 Carbon Dioxide 24 mmol/L (22-29) 12/04/24 20:56 Anion Gap 13.7 (5-19) 12/04/24 20:56 BUN 8 mg/dL (6-20) 12/04/24 20:56 Creatinine 0.5 mg/dL (0.5-0.9) 12/04/24 20:56 GFR Calculation 131.7 mL/min (90-130) H 12/04/24 20:56 Glucose 91 mg/dL (65-115) 12/04/24 20:56 Calculated Osmolality 280 mOsm/kg (285-295) L 12/04/24 20:56 Lactic Acid 0.7 mmol/L (0.5-2.2) 12/04/24 19:58 Calcium 8.5 mg/dL (8.5-10.5) 12/04/24 20:56 Total Bilirubin 0.2 mg/dL (0.15-1.2) 12/04/24 20:56 AST 9 U/L (0-32) 12/04/24 20:56 ALT < 5 U/L (0-33) 12/04/24 20:56 Alkaline Phosphatase 64 U/L (35-105) 12/04/24 20:56 C-Reactive Protein 3.0 mg/L (0.0-4.9) 12/04/24 20:56 Total Protein 5.9 g/dL (6.6-8.7) L 12/04/24 20:56 Albumin 3.8 g/dL (3.5-5.2) 12/04/24 20:56 Globulin 2.1 g/dL (1.3-4.6) 12/04/24 20:56 Lipase 18 U/L (13-60) 12/04/24 20:56 Urine Color Yellow (Yellow) 12/04/24 19:58 Urine Appearance Clear (CLEAR) 12/04/24 19:58 Urine pH 6.0 (5-7) 12/04/24 19:58 Ur Specific [place] 1.016 (1.005-1.030) 12/04/24 19:58 Urine Protein Negative (Negative) 12/04/24 19:58 Urine Glucose (UA) Negative (Normal) 12/04/24 19:58 Urine Ketones Trace (Negative) 12/04/24 19:58 Urine Blood Negative (Negative) 12/04/24 19:58 Urine Nitrate Negative (Negative) 12/04/24 19:58 Urine Bilirubin Negative (Negative) 12/04/24 19:58 Urine Urobilinogen 1.0 mg/dL (Negative) 12/04/24 19:58 Ur Leukocyte Esterase 1+ (Negative) A 12/04/24 19:58 Urine RBC 0-2 /hpf (0-2) 12/04/24 19:58 Urine WBC 5-10 /hpf (0-5) H 12/04/24 19:58 Ur Squamous Epith Cells 3-5 /hpf (0-5) 12/04/24 19:58 Amorphous Sediment Not Reportable 12/04/24 19:58 Urine Bacteria None /hpf (NONE) 12/04/24 19:58 XR interpretation done by ED provider, pending radiology final review Discharge Plan Discharge Patient Disposition: Home Clinical Impression: Aneurysm of splenic artery Condition: Stable Prescriptions: New methocarbamol 750 mg tablet 750 mg PO Q8H PRN (Reason: muscle spasm) Qty: 30 0RF No Action metronidazole 0.75 % gel 1 applic topical DAILY Qty: 45 1RF cyclobenzaprine 10 mg tablet 10 mg PO TID PRN (Reason: muscle spasm) Qty: 30 0RF Discharge Orders: Discharge ED (Routine); Ordered 12/05/24 Ordered By: Emeli Villarreal Referrals: Gil Uribe DO [Referring, Vascular Surgery] - 7-10 days Referral Note: Splenic calcified aneurysm Emanuel Vences MD [Primary Care Provider, [facility]] Discharge Diet: Clear Liquid Discharge Activity: Resume usual activity Patient Instructions: Patient Portal & Luz Instructions Activity Restrictions/Additional Instructions: - Only clear liquid diet until the pain has resolved - Muscle relaxer sent to the pharmacy to utilize for pain. As well, utilize Tylenol or ibuprofen Stand Alone Forms: Work/School Release Print Language: Belarusian Coding Level of Care Code ED Silver Buffer for Bashir Pulliam
[2024-12-04 20:39] LABS: Hematocrit 39.1 % (36-47); Hemoglobin 12.80 g/dL (11.27-16.99); Mean Corpuscular HGB Conc 32.7 g/dL (30-55); Mean Corpuscular Hemoglobin 29.8 pg (27-33); Mean Corpuscular Volume 90.9 fl (85-98); Nucleated Red Blood Cells % 0 %; Platelet Count 242 10^3/cmm (157-399); Red Blood Count 4.30 10^6/uL (3.85-5.65); White Blood Count 5.75 10^3/uL (3.29-11.43)
[2024-12-04] MEDS: iohexol 350 mg/mL 500 mL Btl (per mL) IV ×2 (20:47→22:17)
[2024-12-04 20:58] LABS: Lactic Sepsis W/Reflex 0.7 mmol/L (0.5-2.2)
[2024-12-04 20:59] VITALS: RESP 17
[2024-12-04] MEDS: ondansetron 2 mg/ML SDV 2 mL 4 MG IVP (20:59)
[2024-12-04] MEDS: fentaNYL 50 mcg/mL INJ 2mL IVP (20:59)
[2024-12-04 21:18] LABS: Alanine Aminotransferase < 5 U/L (0-33); Albumin Level 3.8 g/dL (3.5-5.2); Alkaline Phosphatase 64 U/L (35-105); Anion Gap 13.7 (5-19); Aspartate Amino Transferase 9 U/L (0-32); Blood Urea Nitrogen 8 mg/dL (6-20); Calcium 8.5 mg/dL (8.5-10.5); Carbon Dioxide 24 mmol/L (22-29); Chloride 102 mmol/L (98-107); Creatinine Clr Calc Pharmacy 160.5429; Globulin 2.1 g/dL (1.3-4.6); Glucose 91 mg/dL (65-115); Lipase 18 U/L (13-60); Osmolality Calculated 280 mOsm/kg (285-295); Potassium 3.7 mmol/L (3.5-5.1); Sodium 136 mmol/L (136-145); Total Protein 5.9 g/dL (6.6-8.7)
[2024-12-04 21:22] VITALS: BP 109/74; O2SAT 95
[2024-12-04 21:35] VITALS: BP 120/70; O2SAT 100
[2024-12-04 21:49] LABS: Glucose Urine UA Negative (Normal); Nitrate Urine Negative (Negative); Specific Gravity, Urine 1.016 (1.005-1.030)
[2024-12-04 21:57] LABS: UA Manual Slide Review YES
[2024-12-04 21:59] LABS: Add Urine Microscopic? YES
--- NOTE | 2024-12-04 22:03 | CTR_ITS ---
PROCEDURE INFORMATION: Exam: CTA Chest With Contrast CTA Abdomen and Pelvis With Contrast Exam date and time: 12/04/2024 10:15 PM Age: 49 years old Clinical indication: Abnormal findings; Other: N/a; Abnormal diagnostic imaging exam; Abnormality: Suspected spenic arterial aneurysm; Exam and body structure: Abd pel CT; Prior surgery; Surgery date: 6+ months; Surgery type: Gastric bypass. Gb. Hysterectomy. Suspected splenic arterial aneurysm noted on abd CT performed earlier this evening. ; Additional info: Possible splenic aneurysm TECHNIQUE: Imaging protocol: Computed tomographic angiography of the chest with contrast. Exam focused on the arteries. Computed tomographic angiography of the abdomen and pelvis with contrast. Exam focused on the arteries. 3D rendering (Not supervised by radiologist): MIP and/or 3D reconstructed images were created by the technologist. Radiation optimization: All CT scans at this facility use at least one of these dose optimization techniques: automated exposure control; mA and/or kV adjustment per patient size (includes targeted exams where dose is matched to clinical indication); or iterative reconstruction. Contrast material: OMNI 350; Contrast volume: 100 ml; Contrast route: INTRAVENOUS (IV); COMPARISON: CT abdomen pelvis w con* [id number] 12/04/2024 8:44 PM RADIATION DOSE METRICS: Total DLP (mGy-cm): 857.2 FINDINGS: VASCULATURE: Aorta: No aortic aneurysm. No aortic dissection. Diffuse atherosclerotic disease without significant stenosis or occlusion. Celiac and mesenteric arteries: Distal splenic artery aneurysm measuring 8 x 10 x 12 mm (series 6, image 24; series 8, image 16). Remainder of the celiac and mesenteric arteries are without acute findings. Renal arteries: No occlusion or significant stenosis. Right iliac arteries: No occlusion or significant stenosis. Atherosclerotic disease is present. Left iliac arteries: No occlusion or significant stenosis. Atherosclerotic disease is present. CT/CT angio abdomen pelvis [id number] IMPRESSION: Confirmed 8 x 10 x 12 mm peripherally calcified splenic artery aneurysm. Recommend vascular consultation for further assessment and management.
[2024-12-05 00:08] VITALS: PULSE 68; RESP 16; O2SAT 100
[2024-12-05] MEDS: orphenadrine 30 mg/mL Inj 2 mL 60 MG IV (00:14)
[2024-12-05 00:21] VITALS: BP 111/73; PULSE 64; RESP 16; O2SAT 99
== END 2024-12-05 00:33 | disposition home or self-care (01) ==
PROVIDERS: Emergency Provider Physician Assistant; PCP Family Medicine
DX: I72.8 Aneurysm of other specified arteries (principal)
CPT/HCPCS: 36415; 74174; 74177; 80053; 81001; 83605; 83690; 85025; 86140; 96361; 96374; 96375; 99285; J1885; J2360; J2405; J3010; J7030

== ENCOUNTER 2024-12-07 15:42 | Outpatient (CLI) | payer OTHER, SELFPAY ==
--- NOTE | 2024-12-07 15:51 | XR_ITS ---
WS: [id number] Thoracic spine, 3 views, 12/07/2024 Clinical Data: Thoracic radiculopathy on the left around level T9-T10 Comparison: None. Findings: No compression fractures are seen. The disc heights are normal. There is a minimal dextroscoliosis of the midthoracic spine. There are small osteophytes of the midthoracic vertebral bodies. The paravertebral regions are normal. XR/XR thoracic spine 3V* [id number] Impression: Osteoarthritis and minimal dextroscoliosis.
== END 2024-12-07 15:43 | disposition home or self-care (01) ==
PROVIDERS: PCP Family Medicine; Visit Provider Family Medicine
DX: M47.24 Other spondylosis with radiculopathy, thoracic region (principal); M25.78 Osteophyte, vertebrae
CPT/HCPCS: 72072

== ENCOUNTER 2024-12-16 12:54 | Outpatient (CLI) | payer OTHER, SELFPAY ==
--- NOTE | 2024-12-16 13:00 | MM_ITS ---
WS: [id number] BILATERAL SCREENING DIGITAL TOMOSYNTHESIS MAMMOGRAM WITH CAD HISTORY: Screening COMPARISON: 12/16/2023, 12/13/2022, 03/30/2019 Bilateral CC and MLO views with tomosynthesis and synthetic mammography submitted. Computer aided detection analyzed. Breast composition: There are scattered areas of fibroglandular density. No suspicious masses, microcalcifications or architectural distortion. Benign calcifications. Numerous folds within each breast, greatest on the RIGHT breast related to the patient's recent weight loss. MM/MM scr BI tomosynthesis [id number] IMPRESSION: BI-RADS: 2 - Benign. FOLLOW UP: 1 Year Follow-up
== END 2024-12-16 12:55 | disposition home or self-care (01) ==
LOC: RAD 12:55
PROVIDERS: PCP Family Medicine; Visit Provider Family Medicine
DX: Z12.31 Encounter for screening mammogram for malignant neoplasm of breast (principal); R92.323 Mammographic fibroglandular density, bilateral breasts; R92.1 Mammographic calcification found on diagnostic imaging of breast
CPT/HCPCS: 77063; 77067